=== PATIENT | male | born 1965 | race American Indian/Alaskan Native ===

== ENCOUNTER 2017-03-29 08:04 | Emergency (ER) | payer MEDICARE ==
[2017-03-29 08:18] VITALS: BP 123/84
[2017-03-29] MEDS ORDERED: MOTRIN PO ONE (09:35)
--- NOTE | 2017-03-29 18:46 | Emergency Department Report ---
Entered by HIPOLITO FORRESTER, acting as scribe for ALBERT AN NP. ED Lower Extremity HPI - General Chief Complaint: Extremity Injury, Lower Stated Complaint: BI LATERAL KNEE PAIN Time Seen by Provider: 03/29/17 09:16 Source: patient Mode of arrival: Ambulatory Limitations: No Limitations - History of Present Illness Initial Comments: This a 51 y/o male, nontoxic, well nourished in appearance, no acute signs of distress with a PMHx of arthritis, HTN, and renal diseases presents with c/o an acute episode of bilateral knee pain that began 3 weeks ago. Rates pain a 10/10 in severity, which he describes as aching in quality. Patient stated has been walking a lot lately. Aggravated with movement and weight bearing, and alleviated with inactivity. Reports associated bilateral knee swelling, but he denies any fall or injury. Patient denies fever, chills, calf pain, calf swelling, joint redness, chest pain, SOB, MILLER or dizziness, numbness, tingling. Denies Hx of bilateral knee pain, but notes he walks a lot. NKDA. 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 denies: snap/pop sensation, numbness, tingling, unable to bear weight, able to partially bear weight - Related Data Previous Rx's Medication Instructions Recorded Last Taken Type Ibuprofen [Motrin 600 MG tab] 600 mg PO Q8H PRN #20 tablet 03/29/17 Unknown Rx predniSONE [Deltasone] 20 mg PO BID #10 tab 03/29/17 Unknown Rx Allergies Allergy/AdvReac Type Severity Reaction Status Date / Time chlorox Allergy Rash Uncoded 03/29/17 08:12 ED Review of Systems Comment: All other systems reviewed and negative Constitutional: denies: chills, fever Eyes: denies: eye pain, eye discharge, vision change ENT: denies: ear pain, throat pain Respiratory: denies: cough, shortness of breath, wheezing Cardiovascular: denies: chest pain, palpitations, dyspnea on exertion, orthopnea , edema, syncope, paroxysmal nocturnal dyspnea Endocrine: no symptoms reported Gastrointestinal: denies: abdominal pain, nausea, vomiting, diarrhea Genitourinary: denies: urgency, dysuria Musculoskeletal: joint swelling (bilateral knee), arthralgia (bilateral knee pain). denies: back pain Skin: denies: rash, lesions Neurological: denies: headache, weakness, numbness, paresthesias Psychiatric: denies: anxiety, depression Hematological/Lymphatic: denies: easy bleeding, easy bruising ED Past Medical Hx - Past Medical History Previous Medical History?: Yes Hx Hypertension: Yes Hx Renal Disease: Yes (HD - -Sat) Hx Arthritis: Yes - Surgical History Past Surgical History?: Yes Additional Surgical History: right inquinal hernia - Social History Smoking Status: Never Smoker Substance Use Type: Prescribed - Medications Home Medications: Home Medications Medication Instructions Recorded Confirmed Last Taken Type Ibuprofen [Motrin 600 MG tab] 600 mg PO Q8H PRN #20 tablet 03/29/17 Unknown Rx predniSONE [Deltasone] 20 mg PO BID #10 tab 03/29/17 Unknown Rx ED Physical Exam - General Limitations: No Limitations General appearance: alert, in no apparent distress - Head Head exam: Present: atraumatic, normocephalic, normal inspection - Eye Eye exam: Present: normal appearance, PERRL, EOMI. Absent: scleral icterus, conjunctival injection, nystagmus, periorbital swelling, periorbital tenderness Pupils: Present: normal accommodation - ENT ENT exam: Present: normal exam, normal orophraynx, mucous membranes moist, TM's normal bilaterally, normal external ear exam - Neck Neck exam: Present: normal inspection, full ROM. Absent: tenderness, meningismus, lymphadenopathy - Respiratory Respiratory exam: Present: normal lung sounds bilaterally. Absent: respiratory distress, wheezes, rales, rhonchi, stridor, chest wall tenderness, accessory muscle use, decreased breath sounds, prolonged expiratory - Cardiovascular Cardiovascular Exam: Present: regular rate, normal rhythm, normal heart sounds. Absent: bradycardia, tachycardia, irregular rhythm, systolic murmur, diastolic murmur, rubs, gallop - GI/Abdominal GI/Abdominal exam: Present: soft, normal bowel sounds. Absent: distended, tenderness, guarding, rebound, rigid, diminished bowel sounds - Rectal Rectal exam: Present: deferred - Extremities Exam Extremities exam: Present: normal inspection, full ROM, normal capillary refill. Absent: tenderness, pedal edema, joint swelling, calf tenderness - Expanded Lower Extremity Exam Left Hip exam: Present: normal inspection, full ROM, external rotation, internal rotation, pelvic stability. Absent: tenderness, swelling, abrasion, laceration , ecchymosis, deformity, crepidus, dislocation, erythema, shortening Upper Leg exam: Present: normal inspection, full ROM. Absent: tenderness, swelling, abrasion, laceration, ecchymosis, deformity, crepidus, dislocation, erythema Knee exam: Present: normal inspection, full ROM, swelling (slight swelling to left knee), full knee extension. Absent: tenderness, abrasion, laceration, ecchymosis, deformity, crepidus, dislocation, erythema, effusion, pain w/ pronation/supination, posterior draw sign, pain/laxity with valgus, pain/laxity with varus Lower Leg exam: Present: normal inspection, full ROM. Absent: tenderness, swelling, abrasion, laceration, ecchymosis, deformity, crepidus, dislocation, erythema, palpable cord, Ale's sign Ankle exam: Present: normal inspection, full ROM. Absent: tenderness, swelling , abrasion, laceration, ecchymosis, deformity, crepidus, dislocation, erythema, anterior draw sign Foot/Toe exam: Present: normal inspection, full ROM. Absent: tenderness, swelling, abrasion, laceration, ecchymosis, deformity, crepidus, dislocation, erythema, amputation, puncture wound, foreign body, calcaneal tenderness, tenderness at base of 5th metatarsal, nail avulsion, subungual hematoma Neuro vascular tendon exam: Present: no vascular compromise. Absent: pulse deficit, abnormal cap refill, motor deficit, sensory deficit, tendon deficit, extremity cold to touch, pallor, abnormal 2-point discrimination, decreased fine /light touch, foot drop, peroneal nerve deficit, significant pain with passive ROM of distal joint Gait: Positive: observed and normal Right Hip exam: Present: normal inspection, full ROM. Absent: tenderness, swelling, abrasion, laceration, ecchymosis, deformity Upper Leg exam: Present: normal inspection, full ROM. Absent: tenderness, swelling, abrasion, laceration, ecchymosis, deformity, crepidus, dislocation, erythema Knee exam: Present: normal inspection, full ROM, full knee extension. Absent: tenderness, swelling, abrasion, laceration, ecchymosis, deformity, crepidus, dislocation, erythema, effusion, pain w/ pronation/supination, posterior draw sign, pain/laxity with valgus, pain/laxity with varus Lower Leg exam: Present: normal inspection, full ROM. Absent: tenderness, swelling, abrasion, laceration, ecchymosis, deformity, crepidus, dislocation, erythema, palpable cord, Ale's sign Ankle exam: Present: normal inspection, full ROM. Absent: tenderness, swelling , abrasion, laceration, ecchymosis, deformity, crepidus, dislocation, erythema, anterior draw sign Foot/Toe exam: Present: normal inspection, full ROM. Absent: tenderness, swelling, abrasion, laceration, ecchymosis, deformity, crepidus, dislocation, erythema, amputation, puncture wound, foreign body, calcaneal tenderness, tenderness at base of 5th metatarsal, nail avulsion, subungual hematoma Neuro vascular tendon exam: Present: no vascular compromise. Absent: pulse deficit, abnormal cap refill, motor deficit, sensory deficit, tendon deficit, extremity cold to touch, pallor, abnormal 2-point discrimination, foot drop, peroneal nerve deficit, significant pain with passive ROM of distal joint Gait: Positive: observed and normal - Back Exam Back exam: Present: normal inspection, full ROM. Absent: tenderness, CVA tenderness (R), CVA tenderness (L), muscle spasm, paraspinal tenderness, vertebral tenderness, rash noted - Neurological Exam Neurological exam: Present: alert, oriented X3, CN II-XII intact, normal gait, reflexes normal. Absent: motor sensory deficit - Psychiatric Psychiatric exam: Present: normal affect, normal mood - Skin Skin exam: Present: warm, dry, intact. Absent: rash ED Course Vital Signs 03/29/17 08:12 Temperature 97.5 F L Pulse Rate 100 H Respiratory 20 Rate Blood Pressure 123/84 O2 Sat by Pulse 99 Oximetry - Reevaluation(s) Reevaluation #1: 03/29/17 09:35 Patient is speaking in full sentences with no signs of distress noted. ED Lower Extremity MDM - Medical Decision Making Ed course: This is a 51-year-old male that presents with arthralgia 1- patient was examined myself. Slight swelling to left knee noted with no signs of redness or infection. No numbness or tingling. Patient able to walk normally with normal gait. X-ray imaging has been obtained. Patient received ibuprofen 800 mg in the ED. Patient received prednisone and ibuprofen at the time of discharge. Patient was instructed to follow-up with her primary care doctor in 3-5 days or if symptoms worsen such as numbness, tingling, swelling, redness, fever, chills, chest pain or shortness of breath return to emergency room as was possible. at time time of discharge, the patient does not seem toxic or ill in appearance. No acute signs of distress noted. Patient agrees to discharge treatment plan of care. No further questions noted by the patient. ED Disposition Clinical Impression: Arthralgia Qualifiers: Joint pain location: knee Laterality: bilateral Qualified Code(s): M25.561 - Pain in right knee; M25.562 - Pain in left knee Disposition: - TO HOME OR SELFCARE Is pt being admited?: No Does the pt Need Aspirin: No Condition: Stable Instructions: Knee Pain (ED), Arthralgia (ED), Prednisone (By mouth), Ibuprofen (By mouth) Additional Instructions: follow-up with your primary care doctor in 3-5 days or if symptoms worsen such as numbness, tingling, swelling, redness, fever, chills, chest pain or shortness of breath return to emergency room as was possible. Prescriptions: Ibuprofen [Motrin 600 MG tab] 600 mg PO Q8H PRN #20 tablet PRN Reason: Pain predniSONE [Deltasone] 20 mg PO BID #10 tab Referrals: PRIMARY MD SAMEER [Primary Care Provider] - 3-5 Days JOSE CUNNINGHAM JR, MD [Staff Physician] - 3-5 Days [facility] [Outside] - 3-5 Days [facility] [Outside] - 3-5 Days This documentation as recorded by the MITZY garber JASMINE,accurately reflects the service I personally performed and the decisions made by ,ALBERT AN, KARINE.
== END 2017-03-29 09:55 | disposition home or self-care (01) ==
LOC: ED 08:04
DX: M25.561 Pain in right knee (principal); M25.562 Pain in left knee; M79.89 Other specified soft tissue disorders; I10 Essential (primary) hypertension; M19.90 Unspecified osteoarthritis, unspecified site; Z88.8 Allergy status to other drugs, medicaments and biological substances
CPT/HCPCS: 99282

== ENCOUNTER 2017-09-25 09:09 | Emergency (ER) | payer MEDICARE ==
[2017-09-25] MEDS ORDERED: PERCOCET 5/325 PO ONE (15:52)
[2017-09-25 16:54] LABS: Calcium 8.7 mg/dL (8.4-10.2)
[2017-09-25 17:01] LABS: Basophils # (Auto) 0.1 K/mm3 (0.0-0.1); Eosinophils # (Auto) 0.4 K/mm3 (0.0-0.4); Eosinophils % (Auto) 7.6 % (0.0-4.3); Hematocrit 37.5 % (35.5-45.6); Hemoglobin 12.3 gm/dl (11.8-15.2); Lymphocytes # (Auto) 1.1 K/mm3 (1.2-5.4); Lymphocytes % (Auto) 24.4 % (13.4-35.0); Mean Corpuscular HGB Conc 33 % (32-34); Mean Corpuscular Hemoglobin 31 pg (28-32); Mean Corpuscular Volume 95 fl (84-94); Monocytes # (Auto) 0.5 K/mm3 (0.0-0.8); Monocytes % (Auto) 9.7 % (0.0-7.3); Platelet Count 181 K/mm3 (140-440); Red Blood Count 3.96 M/mm3 (3.65-5.03); Red Cell Distribution Width 17.2 % (13.2-15.2)
[2017-09-25 17:04] LABS: INR 1.08 (0.87-1.13)
[2017-09-25 17:05] LABS: Partial Thromboplastin Time 33.3 Sec. (24.2-36.6)
[2017-09-25 17:33] LABS: Basophils % (Auto) 1.9 % (0.0-1.8)
--- NOTE | 2017-09-25 18:10 | Emergency Department Report ---
ED Extremity Problem HPI - General Chief complaint: Extremity Injury, Lower Stated complaint: RIGHT LEG PAIN Time Seen by Provider: 09/25/17 13:24 Source: patient Mode of arrival: Ambulatory Limitations: No Limitations - History of Present Illness Initial comments: 51-year-old male with a past medical history of end-stage front disease on dialysis, hypertension, arthritis, PVD, gout and ongoing foot pain presents to the hospital with his for right foot pain 2 weeks. is concerned that he has an infection. They saw their refrigeration technician 2 weeks ago. She was told that "he has an infection" but she denies any antibiotics being prescribed. Patient was last on Levaquin and clindamycin in July. also states that last week she saw a vascular surgeon associated with only answer vascular specialist located in [place] (Dr Cevallos). I recognized the patient from previous hospital visits related to pain. Previous medical record review. In January 2017 patient was here and underwent catheterization of peripheral leg arteries. Patient is also a liquids however, does not know why he is on this medication. Severity scale (0 -10): 7 - Related Data Previous Rx's Medication Instructions Recorded Last Taken Type Ibuprofen [Motrin 600 MG tab] 600 mg PO Q8H PRN #20 tablet 03/29/17 Unknown Rx predniSONE [Deltasone] 20 mg PO BID #10 tab 03/29/17 Unknown Rx HYDROcodone/APAP 5-325 [Crum[place] 1 each PO Q6HR PRN #20 tablet 09/25/17 Unknown Rx 5/325] Allergies Allergy/AdvReac Type Severity Reaction Status Date / Time chlorox Allergy Rash Uncoded 03/29/17 08:12 ED Review of Systems ROS: Stated complaint: RIGHT LEG PAIN Other details as noted in HPI Comment: All other systems reviewed and negative Other: Constitutional: No fevers chills Eyes: No eye pain visual changes ENT: No ear pain or throat pain Neck: Denies pain Respiratory: Denies cough wheezing shortness of breath Cardiovascular: Denies chest pain, palpitations, syncope GI: Denies abdominal pain, nausea, vomiting, diarrhea : Denies dysuria Musculoskeletal:as per hpi Skin: Denies rash, lesions, erythema Neurologic: Denies headache, numbness, weakness Psychiatric: Denies suicidal ideation, hallucinations ED Past Medical Hx - Past Medical History Previous Medical History?: Yes Hx Hypertension: Yes Hx Renal Disease: Yes (HD - -Sat) Hx Arthritis: Yes - Surgical History Past Surgical History?: Yes Additional Surgical History: right inquinal hernia - Social History Smoking Status: Never Smoker Substance Use Type: None - Medications Home Medications: Home Medications Medication Instructions Recorded Confirmed Last Taken Type Ibuprofen [Motrin 600 MG tab] 600 mg PO Q8H PRN #20 tablet 03/29/17 Unknown Rx predniSONE [Deltasone] 20 mg PO BID #10 tab 03/29/17 Unknown Rx HYDROcodone/APAP 5-325 [[place]rum[place] 1 each PO Q6HR PRN #20 tablet 09/25/17 Unknown Rx 5/325] ED Physical Exam - General Limitations: No Limitations - Other Other exam information: General: No limitations, patient is alert in no acute distress Head exam: Atraumatic, normocephalic Eyes exam: Normal appearance ENT: Moist mucous membrane, normal oropharynx Neck exam: Normal inspection, full range of motion Respiratory exam: Clear to auscultation bilateral, no wheezes, rales, crackles Cardiovascular: Normal rate and rhythm, normal heart sounds Abdomen: Soft, nondistended, and nontender, with normal bowel sounds, no rebound, or guarding Extremity: Full range of motion, dark spots less discoloration to bilateral feet. No warmth, redness, erythema. 2+ palpable DP pulses bilaterally. Patient has tenderness to palpation of all his distal toes on the right. No open wound or drainage noted. Scaly dry skin noted Back: Normal Inspection, full range of motion, no tenderness Neurologic: Alert, oriented x3, cranial nerves intact, no motor or sensory deficit Psychiatric: normal affect, normal mood Skin: Warm, dry, intact ED Course Vital Signs 09/25/17 09/25/17 09/25/17 09:23 14:30 16:20 Temperature 97.6 F Pulse Rate 96 H 78 Respiratory 20 16 16 Rate Blood Pressure 123/73 Blood Pressure 119/73 [Right] O2 Sat by Pulse 98 100 Oximetry - Reevaluation(s) Reevaluation #1: 09/25/17 18:11 Patient treated with pain medicine during ED stay - Consultations Consultation #1: 09/25/[address] 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 helper who was also some pain with the patient states that symptoms are chronic, patient has known PAD, and will likely need amputation in the future ED Medical Decision Making - Lab Data Result diagrams: 09/25/17 16:17 09/25/17 16:17 Lab Results 09/25/17 09/25/17 09/25/17 Range/Units 16:17 16:17 16:17 WBC 4.7 (4.5-11.0) K/mm3 RBC 3.96 (3.65-5.03) M/mm3 Hgb 12.3 (11.8-15.2) gm/dl Hct 37.5 (35.5-45.6) % MCV 95 H (84-94) fl MCH 31 (28-32) pg MCHC 33 (32-34) % RDW 17.2 H (13.2-15.2) % Plt Count 181 (140-440) K/mm3 Lymph % (Auto) 24.4 (13.4-35.0) % [place] % (Auto) 9.7 H (0.0-7.3) % Eos % (Auto) 7.6 H (0.0-4.3) % Baso % (Auto) 1.9 H (0.0-1.8) % Lymph # 1.1 L (1.2-5.4) K/mm3 [place] # 0.5 (0.0-0.8) K/mm3 Eos # 0.4 (0.0-0.4) K/mm3 Baso # 0.1 (0.0-0.1) K/mm3 Seg Neutrophils % 55.3 (40.0-70.0) % Seg Neutrophils # 2.6 (1.8-7.7) K/mm3 PT 14.6 (12.2-14.9) Sec. INR 1.08 (0.87-1.13) APTT 33.3 (24.2-36.6) Sec. Sodium 136 L (137-145) mmol/L Potassium 4.7 (3.6-5.0) mmol/L Chloride 92.1 L (98-107) mmol/L Carbon Dioxide 25 (22-30) mmol/L Anion Gap 24 mmol/L BUN 36 H (9-20) mg/dL Creatinine 11.1 H (0.8-1.5) mg/dL Estimated GFR 6 ml/min BUN/Creatinine Ratio 3 % Glucose 114 H (75-100) mg/dL Uric Acid (3.5-7.6) mg/dL Calcium 8.7 (8.4-10.2) mg/dL 09/25/17 Range/Units 16:17 WBC (4.5-11.0) K/mm3 RBC (3.65-5.03) M/mm3 Hgb (11.8-15.2) gm/dl Hct (35.5-45.6) % MCV (84-94) fl MCH (28-32) pg MCHC (32-34) % RDW (13.2-15.2) % Plt Count (140-440) K/mm3 Lymph % (Auto) (13.4-35.0) % [place] % (Auto) (0.0-7.3) % Eos % (Auto) (0.0-4.3) % Baso % (Auto) (0.0-1.8) % Lymph # (1.2-5.4) K/mm3 [place] # (0.0-0.8) K/mm3 Eos # (0.0-0.4) K/mm3 Baso # (0.0-0.1) K/mm3 Seg Neutrophils % (40.0-70.0) % Seg Neutrophils # (1.8-7.7) K/mm3 PT (12.2-14.9) Sec. INR (0.87-1.13) APTT (24.2-36.6) Sec. Sodium (137-145) mmol/L Potassium (3.6-5.0) mmol/L Chloride (98-107) mmol/L Carbon Dioxide (22-30) mmol/L Anion Gap mmol/L BUN (9-20) mg/dL Creatinine (0.8-1.5) mg/dL Estimated GFR ml/min BUN/Creatinine Ratio % Glucose (75-100) mg/dL Uric Acid 5.4 (3.5-7.6) mg/dL Calcium (8.4-10.2) mg/dL - Medical Decision Making Right foot pain Likely related to chronic PAD Palpable pulses noted to foot No leg asymmetry or edema Pain appears to be chronic Patient is on Eliquis Labs unremarkable He will be discharged home on pain medication and encouraged to continue his outpatient workup - Differential Diagnosis chronic pain, PhD, neuropathy, gout, infection Critical Care Time: No Critical care attestation.: If time is entered above; I have spent that time in minutes in the direct care of this critically ill patient, excluding procedure time. ED Disposition Clinical Impression: Chronic pain in right foot, PVD (peripheral vascular disease), ESRD (end stage renal disease) on dialysis Disposition: TO HOME OR SELFCARE Is pt being admited?: No Does the pt Need Aspirin: No Condition: Stable Instructions: Peripheral Vascular Disorders (ED) Additional Instructions: Take the medication as prescribed. Follow-up and continue outpatient workup of your ongoing for pain. Prescriptions: HYDROcodone/APAP 5-325 [Crum[place] 5/325] 1 each PO Q6HR PRN #20 tablet PRN Reason: Pain Referrals: PRIMARY CARE, [Primary Care Provider] - 2-3 Days Time of Disposition: 18:17
[2017-09-25 18:34] VITALS: BP 138/71
== END 2017-09-25 18:34 | disposition home or self-care (01) ==
LOC: ED 09:09
DX: M79.671 Pain in right foot (principal); I73.89 Other specified peripheral vascular diseases; G89.29 Other chronic pain; I12.0 Hypertensive chronic kidney disease with stage 5 chronic kidney disease or end stage renal disease; N18.6 End stage renal disease; M19.90 Unspecified osteoarthritis, unspecified site; Z88.8 Allergy status to other drugs, medicaments and biological substances
CPT/HCPCS: 36415; 80048; 84550; 85025; 85610; 85730; 99283